=== PATIENT | male | born 1960 | race Caucasian/White ===

== ENCOUNTER 2024-10-30 07:52 | Emergency (ER) | payer BC ==
[~2024-10-30] VITALS: Ht 193 cm; Wt 109.0 kg
[2024-10-30 08:02] VITALS: O2SAT 99
[2024-10-30 08:09] VITALS: BP 149/80; PULSE 79; RESP 16; TEMP 36.8
== END 2024-10-30 09:20 | disposition home or self-care (01) ==
LOC: ER 07:52
DX: S51.811A Laceration without foreign body of right forearm, initial encounter (principal); Z96.649 Presence of unspecified artificial hip joint; W01.0XXA Fall on same level from slipping, tripping and stumbling without subsequent striking against object, initial encounter; Y93.89 Activity, other specified; Y92.89 Other specified places as the place of occurrence of the external cause; Y99.8 Other external cause status
CPT/HCPCS: 12002; 99282